=== PATIENT | female | born 1950 | race Caucasian/White ===

== ENCOUNTER 2021-07-16 15:52 | Emergency (ER) | payer MEDICARE, OTHER ==
[~2021-07-16] VITALS: Ht 162.6 cm; Wt 59.0 kg
[~2021-07-16 15:52] MED LIST: AMI2 PO; APIX5TAB PO; DOCU-150 PO; HYDR-4009 PO; LOSA50TA41 PO; METO25TA6 PO; MIRT-90 PO; PROC10TA17 PO; SACU1TAB PO; URSO300C4 PO
[2021-07-16] MEDS ORDERED: SODIUM CHLORIDE 0.9% 1,000 ML IV ONE (18:15)
[2021-07-16 18:36] LABS: BASOPHILS % 0.7 % (0.0-2.0); HEMATOCRIT. 39.9 % (36.0-48.0); HEMOGLOBIN. 13.4 g/dL (12.0-16.0); MEAN CORPUSCULAR HEMOGLOBIN 29.2 pg (28.0-32.0); MEAN CORPUSCULAR VOLUME 87.4 fL (81.0-99.0); MONOCYTES % 7.9 % (2.0-8.0); NEUTROPHILS % 69.4 % (40.0-76.0); PLATELET 173 x1000/uL (130-400); RED BLOOD CELL COUNT 4.57 mill/uL (4.2-5.4); RED CELL DISTRIBUTION WIDTH 14.7 % (11.6-14.6)
[2021-07-16 18:43] LABS: CHLORIDE 106 mEq/L (98-107)
[2021-07-17 00:34] VITALS: BP 101/57
== END 2021-07-17 02:33 | disposition short-term general hospital (02) ==
LOC: ER 15:52 → CANBEDREQ 07-17 01:46 → ER 07-17 02:33
DX: R53.1 Weakness (principal); R62.7 Adult failure to thrive; I48.91 Unspecified atrial fibrillation; R10.9 Unspecified abdominal pain; R63.0 Anorexia; Z68.22 Body mass index [BMI] 22.0-22.9, adult; I51.9 Heart disease, unspecified; K76.9 Liver disease, unspecified; G20 Parkinson's disease; Z95.0 Presence of cardiac pacemaker; Z88.5 Allergy status to narcotic agent; Z88.6 Allergy status to analgesic agent; Z79.899 Other long term (current) drug therapy
CPT/HCPCS: 36415; 71045; 80053; 82962; 84484; 85025; 93005; 99285; J7030

== ENCOUNTER 2022-02-13 09:48 | Inpatient (IN) | payer OTHER, MEDICAID ==
[~2022-02-13] VITALS: Ht 160 cm; Wt 54.9 kg
[~2022-02-13 09:48] MED LIST changes: +PROC-1 PO; -PROC10TA17 PO
[2022-02-13 10:55] LABS: BASOPHILS % 0.5 % (0.0-2.0); EOSINOPHILS % 0.1 % (0.0-5.0); HEMATOCRIT. 45.4 % (36.0-48.0); HEMOGLOBIN. 14.5 g/dL (12.0-16.0); MEAN CORPUSCULAR HEMOGLOBIN 28.9 pg (28.0-32.0); MEAN CORPUSCULAR VOLUME 90.3 fL (81.0-99.0); MEAN PLATELET VOLUME 8.3 fl (7.4-10.4); MONOCYTES % 4.2 % (2.0-8.0); NEUTROPHILS % 84.2 % (40.0-76.0); PLATELET 170 x1000/uL (130-400); RED BLOOD CELL COUNT 5.03 mill/uL (4.2-5.4); RED CELL DISTRIBUTION WIDTH 13.5 % (11.6-14.6)
[2022-02-13] MEDS ORDERED: AZITHROMYCIN 500MG/250ML 250 ML IV ONE (11:00)
[2022-02-13] MEDS ORDERED: CEFTRIAXONE 1 G PREMIX 50 ML IV ONE (11:00)
[2022-02-13 11:05] LABS: CHLORIDE 94 mEq/L (98-107)
[2022-02-13 11:25] LABS: CLARITY URINE CLEAR (CLEAR); COLOR URINE DARK YELLOW (YELLOW); KETONES URINE TRACE (NEGATIVE); LEUKOCYTE ESTERASE URINE NEGATIVE (NEGATIVE); NITRITE URINE NEGATIVE (NEGATIVE); OCCULT BLOOD URINE NEGATIVE (NEGATIVE); PH URINE 5.5 (4.5-8.0); PROTEIN URINE 2+ (NEGATIVE); SPECIFIC GRAVITY URINE 1.041 (1.005-1.030)
[2022-02-13] MEDS ORDERED: GUAIFENESIN 200MG/10ML SUGAR FREE UDC PO PRN (12:15)
[2022-02-13] MEDS ORDERED: ALBUTEROL 6.7GM HFA INHALER ORI PRN (12:15)
[2022-02-13] MEDS ORDERED: LORAZEPAM 2MG/ML CPJ IV PRN (12:15)
[2022-02-13] MEDS ORDERED: DIPHENHYDRAMINE 50MG/ML VIAL IV PRN (12:15)
[2022-02-13] MEDS ORDERED: MAGNESIUM/ALUMINUM HYDROXIDE/SIMETHICONE 30ML UDC PO PRN (12:15)
[2022-02-13] MEDS ORDERED: ONDANSETRON HCL 4MG/2ML INJ IV PRN (12:15)
[2022-02-13] MEDS ORDERED: CLONIDINE 0.1MG TABLET PO PRN (12:15)
[2022-02-13] MEDS ORDERED: MORPHINE SULFATE 2 MG/ML CPJ (NOT FOR IM USE) IV PRN (12:15)
[2022-02-13] MEDS ORDERED: HYDROCODONE/ACETAMINOPHEN 5/325MG TABLET PO PRN (12:15)
[2022-02-13] MEDS: SODIUM CHLORIDE 0.9% INJ 3ML FLUSH IVF SCH ×2 (14:43→22:00)
[2022-02-13] MEDS: ENOXAPARIN 40MG/0.4ML SYR SUBCUT SCH (14:43)
[2022-02-13 15:50] VITALS: BP 117/72
[2022-02-13 20:00] VITALS: BP 94/50
[2022-02-13] MEDS ORDERED: NALOXONE HCL 0.4MG/ML VIAL IV PRN (22:30)
[2022-02-14] VITALS (7 sets, daily range): BP systolic 80–129; BP diastolic 50–62
[2022-02-14] MEDS: SODIUM CHLORIDE 0.9% INJ 3ML FLUSH IVF SCH ×3 (06:00→21:15)
[2022-02-14 07:22] LABS: BASOPHILS % 0.5 % (0.0-2.0); EOSINOPHILS % 0.2 % (0.0-5.0); HEMATOCRIT. 43.6 % (36.0-48.0); LYMPHOCYTES % 10.1 % (20.0-50.0); MEAN CORPUSCULAR HEMOGLOBIN 29.3 pg (28.0-32.0); MEAN PLATELET VOLUME 8.4 fl (7.4-10.4); MONOCYTES % 9.1 % (2.0-8.0); NEUTROPHILS % 80.1 % (40.0-76.0); PLATELET 156 x1000/uL (130-400); RED BLOOD CELL COUNT 4.79 mill/uL (4.2-5.4); RED CELL DISTRIBUTION WIDTH 13.9 % (11.6-14.6)
[2022-02-14 07:48] LABS: CHLORIDE 96 mEq/L (98-107)
[2022-02-14] MEDS ORDERED: CEFTRIAXONE 1 G PREMIX 50 ML IV SCH (09:00)
[2022-02-14] MEDS ORDERED: AZITHROMYCIN 500MG/250ML 250 ML IV SCH (09:00)
[2022-02-14] MEDS ORDERED: SODIUM CHLORIDE 0.9% 1,000 ML IV SCH (09:00)
[2022-02-14] MEDS: CEFTRIAXONE 1,000 MG in DEXTROSE 5% WATER 50 ML IV SCH (10:08)
[2022-02-14] MEDS: AZITHROMYCIN 500 MG in DEXT 5% WATER 250 ML IV SCH (11:10)
[2022-02-14] MEDS ORDERED: IPRATROPIUM/ALBUTEROL 0.5-3(2.5)MG/3ML NEB HHN SCH (12:00)
[2022-02-14] MEDS: ENOXAPARIN 40MG/0.4ML SYR SUBCUT SCH (13:52)
[2022-02-14] MEDS ORDERED: FUROSEMIDE 40MG/4ML VIAL IVP NR (14:30)
[2022-02-14] MEDS: IPRATROPIUM/ALBUTEROL 0.5-3(2.5)MG/3ML NEB HHN PRN (17:43)
[2022-02-14] MEDS: METOPROLOL TARTRATE 25MG TABLET GT SCH (18:17)
[2022-02-14] MEDS: IPRATROPIUM BROMIDE (0.02%) 0.5MG/2.5ML NEB HHN SCH (21:30)
[2022-02-15] VITALS: BP 110/58
[2022-02-15] MEDS: IPRATROPIUM BROMIDE (0.02%) 0.5MG/2.5ML NEB HHN SCH ×4 (01:56→20:43)
[2022-02-15 04:00] VITALS: BP 116/57
[2022-02-15] MEDS: SODIUM CHLORIDE 0.9% INJ 3ML FLUSH IVF SCH ×3 (05:02→20:55)
[2022-02-15] MEDS: METOPROLOL TARTRATE 25MG TABLET GT SCH ×2 (05:02→17:46)
[2022-02-15 08:00] VITALS: BP 126/64
[2022-02-15] MEDS: CEFTRIAXONE 1,000 MG in DEXTROSE 5% WATER 50 ML IV SCH (08:05)
[2022-02-15] MEDS: AZITHROMYCIN 500 MG in DEXT 5% WATER 250 ML IV SCH (09:18)
[2022-02-15 12:00] VITALS: BP 111/54
[2022-02-15] MEDS: ENOXAPARIN 40MG/0.4ML SYR SUBCUT SCH (12:39)
[2022-02-15] MEDS: AMIODARONE HCL 200 MG TABLET PO SCH ×2 (13:53→20:54)
[2022-02-15] MEDS: FUROSEMIDE 40MG/4ML VIAL IVP SCH (13:53)
[2022-02-15 16:00] VITALS: BP 126/62
[2022-02-15] MEDS ORDERED: APIXABAN 5 MG TABLET PO SCH (17:00)
[2022-02-15 20:00] VITALS: BP 101/59
[2022-02-16] VITALS (32 sets, daily range): BP systolic 81–179; BP diastolic 36–135
[2022-02-16] MEDS: IPRATROPIUM BROMIDE (0.02%) 0.5MG/2.5ML NEB HHN SCH ×4 (00:39→20:35)
[2022-02-16] MEDS: METOPROLOL TARTRATE 25MG TABLET GT SCH (06:00)
[2022-02-16] MEDS: SODIUM CHLORIDE 0.9% INJ 3ML FLUSH IVF SCH ×2 (06:32→14:00)
[2022-02-16] MEDS ORDERED: ETOMIDATE 2MG/ML 10ML VIAL IV ONE (08:54)
[2022-02-16] MEDS ORDERED: VECURONIUM BROMIDE 10 MG/VIAL IV ONE (08:54)
[2022-02-16] MEDS: AMIODARONE HCL 200 MG TABLET PO SCH ×2 (09:16→20:50)
[2022-02-16] MEDS: FUROSEMIDE 40MG/4ML VIAL IVP SCH (09:16)
[2022-02-16] MEDS: APIXABAN 5 MG TABLET PO SCH ×2 (09:16→17:00)
[2022-02-16] MEDS: CEFTRIAXONE 1,000 MG in DEXTROSE 5% WATER 50 ML IV SCH (09:17)
[2022-02-16] MEDS: AZITHROMYCIN 500 MG in DEXT 5% WATER 250 ML IV SCH (09:17)
[2022-02-16] MEDS: METOPROLOL TARTRATE 50MG TABLET GT SCH (17:00)
[2022-02-16 17:23] LABS: BG BASE EXCESS 11.8 mmol/L (-2.0-2.0); BG CARBOXYHEMOGLOBIN 0.8 % (0.5-1.5); BG DEOXYHEMOGLOBIN 0.6 % (0.0-5.0); BG FRACTION INSPIRED OXYGEN 33; BG HCO3 ACT 46.9 mmol/L (22.0-26.0); BG METHEMOGLOBIN 0.4 % (0.0-1.5); BG OXYGEN SATURATION 99.4 % (92.0-98.5); BG OXYHEMOGLOBIN 98.2 % (94.0-97.0); BG PCO2 140.9 mmHg (35.0-45.0); BG PO2 222.9 mmHg (75.0-100.0); BG SAMPLE SITE RIGHT BRACHIAL; BG TOTAL HEMOGLOBIN 14.4 g/dL (12.0-18.0); BG VENT MODE NASAL CANNULA
[2022-02-16] MEDS: FENTANYL 2500MCG/250ML PMX 250 ML IV PRN (18:55)
[2022-02-16] MEDS ORDERED: PROPOFOL 10MG/ML 100ML 100 ML IV PRN (19:00)
[2022-02-16 19:50] LABS: BG CARBOXYHEMOGLOBIN 1.1 % (0.5-1.5); BG FRACTION INSPIRED OXYGEN 30; BG HCO3 ACT 34.5 mmol/L (22.0-26.0); BG METHEMOGLOBIN 0.1 % (0.0-1.5); BG OXYGEN SATURATION 93.9 % (92.0-98.5); BG OXYHEMOGLOBIN 92.8 % (94.0-97.0); BG PCO2 29.8 mmHg (35.0-45.0); BG PH 7.681 (7.350-7.450); BG PO2 39.3 mmHg (75.0-100.0); BG TOTAL HEMOGLOBIN 14.1 g/dL (12.0-18.0); BG VENT MODE VENT - AC
[2022-02-16 20:34] LABS: HEMATOCRIT 44.7 % (36.0-48.0); HEMOGLOBIN 14.1 g/dL (12.0-16.0); MEAN CORPUSCULAR HEMOGLOBIN 29.1 pg (28.0-32.0); MEAN CORPUSCULAR VOLUME 92.5 fL (81.0-99.0); PLATELET 148 x1000/uL (130-400); RED BLOOD CELL COUNT 4.84 mill/uL (4.2-5.4); RED CELL DISTRIBUTION WIDTH 14.2 % (11.6-14.6)
[2022-02-16 20:50] LABS: INR 1.1; PROTHROMBIN TIME 11.3 sec (9.6-11.0)
[2022-02-16 21:16] LABS: CHLORIDE 96 mEq/L (98-107)
[2022-02-16] MEDS ORDERED: AMIODARONE HCL 150 MG in DEXT 5% WATER 100 ML IV NR (22:00)
[2022-02-16] MEDS ORDERED: AMIODARONE HCL 900 MG in DEXT 5% WATER 482 ML IV PRN (22:00)
[2022-02-16 22:08] LABS: BG BASE EXCESS 9.2 mmol/L (-2.0-2.0); BG CARBOXYHEMOGLOBIN 0.8 % (0.5-1.5); BG DEOXYHEMOGLOBIN 4.8 % (0.0-5.0); BG FRACTION INSPIRED OXYGEN 60; BG HCO3 ACT 31.2 mmol/L (22.0-26.0); BG METHEMOGLOBIN 0.1 % (0.0-1.5); BG OXYGEN SATURATION 95.2 % (92.0-98.5); BG OXYHEMOGLOBIN 94.3 % (94.0-97.0); BG PCO2 33.8 mmHg (35.0-45.0); BG PH 7.583 (7.350-7.450); BG PO2 54.6 mmHg (75.0-100.0); BG SAMPLE SITE RIGHT RADIAL; BG TOTAL HEMOGLOBIN 13.9 g/dL (12.0-18.0); BG VENT MODE VENT - AC
[2022-02-17] VITALS (75 sets, daily range): BP systolic 62–120; BP diastolic 40–88
[2022-02-17] MEDS: ACETAMINOPHEN 325MG TABLET PO PRN (00:25)
[2022-02-17] MEDS: ACETYLCYSTEINE 100MG/ML 10% VIAL 4ML INH SCH ×3 (01:42→15:38)
[2022-02-17] MEDS: IPRATROPIUM BROMIDE (0.02%) 0.5MG/2.5ML NEB HHN SCH ×4 (01:42→20:01)
[2022-02-17] MEDS: FUROSEMIDE 40MG/4ML VIAL IVP SCH (08:40)
[2022-02-17] MEDS: AMIODARONE HCL 200 MG TABLET PO SCH ×2 (08:40→20:39)
[2022-02-17] MEDS: APIXABAN 5 MG TABLET PO SCH ×2 (08:40→17:13)
[2022-02-17] MEDS: METOPROLOL TARTRATE 50MG TABLET GT SCH ×2 (09:00→17:13)
[2022-02-17 09:05] LABS: BG BASE EXCESS 4.6 mmol/L (-2.0-2.0); BG CARBOXYHEMOGLOBIN 0.8 % (0.5-1.5); BG DEOXYHEMOGLOBIN 4.5 % (0.0-5.0); BG FRACTION INSPIRED OXYGEN 60; BG HCO3 ACT 26.6 mmol/L (22.0-26.0); BG OXYGEN SATURATION 95.5 % (92.0-98.5); BG OXYHEMOGLOBIN 94.7 % (94.0-97.0); BG PCO2 31.8 mmHg (35.0-45.0); BG PH 7.541 (7.350-7.450); BG PO2 64.5 mmHg (75.0-100.0); BG SAMPLE SITE RIGHT RADIAL; BG TOTAL HEMOGLOBIN 13.7 g/dL (12.0-18.0); BG VENT MODE VENT - AC
[2022-02-17] MEDS: CEFTRIAXONE 1,000 MG in DEXTROSE 5% WATER 50 ML IV SCH (10:14)
[2022-02-17] MEDS ORDERED: FUROSEMIDE 20MG/2ML VIAL IVP NR (10:15)
[2022-02-17] MEDS: IPRATROPIUM/ALBUTEROL 0.5-3(2.5)MG/3ML NEB HHN PRN (10:58)
[2022-02-17] MEDS ORDERED: SODIUM CHLORIDE 0.9% 500 ML IV ONE (16:45)
[2022-02-17] MEDS: DOCUSATE SODIUM 100MG CAPSULE PO PRN (20:39)
[2022-02-18] VITALS (96 sets, daily range): BP systolic 39–143; BP diastolic 16–85
[2022-02-18] MEDS: ACETYLCYSTEINE 100MG/ML 10% VIAL 4ML INH SCH ×3 (00:17→14:21)
[2022-02-18] MEDS: IPRATROPIUM BROMIDE (0.02%) 0.5MG/2.5ML NEB HHN SCH ×5 (00:17→20:13)
[2022-02-18 05:43] LABS: HEMATOCRIT. 39.9 % (36.0-48.0); MEAN CORPUSCULAR HEMOGLOBIN 29.3 pg (28.0-32.0); MEAN CORPUSCULAR VOLUME 90.3 fL (81.0-99.0); MEAN PLATELET VOLUME 9.2 fl (7.4-10.4); PLATELET 142 x1000/uL (130-400); RED BLOOD CELL COUNT 4.42 mill/uL (4.2-5.4); RED CELL DISTRIBUTION WIDTH 13.6 % (11.6-14.6)
[2022-02-18 06:01] LABS: CHLORIDE 99 mEq/L (98-107)
[2022-02-18 06:12] LABS: HDL CHOLESTEROL 31 mg/dL (40-59); LDL CHOLESTEROL 27 mg/dL (5-100); PHOSPHORUS 1.9 mg/dL (2.5-4.9)
[2022-02-18 07:45] LABS: BG BASE EXCESS 3.8 mmol/L (-2.0-2.0); BG CARBOXYHEMOGLOBIN 0.5 % (0.5-1.5); BG DEOXYHEMOGLOBIN 6.3 % (0.0-5.0); BG HCO3 ACT 26.7 mmol/L (22.0-26.0); BG METHEMOGLOBIN 0.2 % (0.0-1.5); BG OXYGEN SATURATION 93.7 % (92.0-98.5); BG PCO2 34.9 mmHg (35.0-45.0); BG PH 7.502 (7.350-7.450); BG PO2 59.6 mmHg (75.0-100.0); BG SAMPLE SITE RIGHT RADIAL; BG TOTAL HEMOGLOBIN 13.8 g/dL (12.0-18.0); BG VENT MODE VENT - AC
[2022-02-18] MEDS: METOPROLOL TARTRATE 50MG TABLET GT SCH (08:08)
[2022-02-18] MEDS: APIXABAN 5 MG TABLET PO SCH ×2 (08:08→16:31)
[2022-02-18] MEDS: ACETAMINOPHEN 325MG TABLET PO PRN (08:08)
[2022-02-18] MEDS: AMIODARONE HCL 200 MG TABLET PO SCH (08:08)
[2022-02-18] MEDS: CEFTRIAXONE 1,000 MG in DEXTROSE 5% WATER 50 ML IV SCH (08:08)
[2022-02-18] MEDS: FUROSEMIDE 40MG/4ML VIAL IVP SCH (08:09)
[2022-02-18 08:14] LABS: PLATELET ESTIMATE NORMAL
[2022-02-18] MEDS: IPRATROPIUM/ALBUTEROL 0.5-3(2.5)MG/3ML NEB HHN PRN (08:17)
[2022-02-18] MEDS ORDERED: ALBUMIN HUMAN 25GM/500ML (5%) IV NR (09:00)
[2022-02-18] MEDS ORDERED: SODIUM CHLORIDE 0.9% 1,000 ML IV SCH ×2 (09:00→09:15)
[2022-02-18] MEDS ORDERED: ALBUMIN HUMAN 25GM/500ML (5%) IV PRN (12:45)
[2022-02-18] MEDS: AMIODARONE HCL 200 MG TABLET NG SCH (20:40)
[2022-02-18] MEDS: DOCUSATE SODIUM 100MG CAPSULE PO PRN (20:41)
[2022-02-19] VITALS (72 sets, daily range): BP systolic 75–140; BP diastolic 24–96
[2022-02-19] MEDS: IPRATROPIUM BROMIDE (0.02%) 0.5MG/2.5ML NEB HHN SCH ×4 (00:14→20:23)
[2022-02-19] MEDS: ACETYLCYSTEINE 100MG/ML 10% VIAL 4ML INH SCH ×3 (00:14→14:36)
[2022-02-19] MEDS ORDERED: AMIODARONE HCL 900 MG in DEXT 5% WATER 482 ML IV PRN (04:00)
[2022-02-19] MEDS ORDERED: AMIODARONE HCL 150 MG in DEXT 5% WATER 100 ML IV NR (04:00)
[2022-02-19 06:17] LABS: HDL CHOLESTEROL 13 mg/dL (40-59); LDL CHOLESTEROL 18 mg/dL (5-100)
[2022-02-19 08:45] LABS: BG BASE EXCESS 1.8 mmol/L (-2.0-2.0); BG CARBOXYHEMOGLOBIN 0.5 % (0.5-1.5); BG DEOXYHEMOGLOBIN 4.5 % (0.0-5.0); BG FRACTION INSPIRED OXYGEN 80; BG METHEMOGLOBIN 0.2 % (0.0-1.5); BG OXYGEN SATURATION 95.5 % (92.0-98.5); BG OXYHEMOGLOBIN 94.8 % (94.0-97.0); BG PCO2 39.4 mmHg (35.0-45.0); BG PH 7.438 (7.350-7.450); BG SAMPLE SITE RIGHT RADIAL; BG TOTAL HEMOGLOBIN 11.9 g/dL (12.0-18.0); BG VENT MODE VENT - AC
[2022-02-19] MEDS ORDERED: SODIUM CHLORIDE 0.9% 1,000 ML IV SCH ×2 (09:15→11:00)
[2022-02-19] MEDS: AMIODARONE HCL 200 MG TABLET NG SCH ×2 (10:41→19:54)
[2022-02-19] MEDS: APIXABAN 5 MG TABLET PO SCH ×2 (10:41→17:00)
[2022-02-19] MEDS: MORPHINE SULFATE 2 MG/ML CPJ (NOT FOR IM USE) IV PRN ×2 (10:51→15:38)
[2022-02-19] MEDS ORDERED: SODIUM PHOS,M-BASIC-D-BASIC 20 MM in DEXT 5% WATER 243.3333 ML IV NR (11:00)
[2022-02-19 12:47] LABS: HEMATOCRIT. 34.4 % (36.0-48.0); HEMOGLOBIN. 11.3 g/dL (12.0-16.0); MEAN CORPUSCULAR VOLUME 88.2 fL (81.0-99.0); PLATELET 107 x1000/uL (130-400); RED CELL DISTRIBUTION WIDTH 13.8 % (11.6-14.6)
[2022-02-19 12:57] LABS: CHLORIDE 107 mEq/L (98-107)
[2022-02-19 13:34] LABS: PLATELET ESTIMATE SLIGHTLY DECREASED
[2022-02-19] MEDS: KCL 20MEQ/100ML PREMIX 100 ML IV SCH ×2 (14:15→17:00)
[2022-02-19] MEDS: FENTANYL 2500MCG/250ML PMX 250 ML IV PRN (16:46)
[2022-02-20] VITALS (70 sets, daily range): BP systolic 57–156; BP diastolic 17–111
[2022-02-20] MEDS: ACETYLCYSTEINE 100MG/ML 10% VIAL 4ML INH SCH ×3 (00:23→13:41)
[2022-02-20] MEDS: IPRATROPIUM/ALBUTEROL 0.5-3(2.5)MG/3ML NEB HHN PRN (00:23)
[2022-02-20] MEDS: IPRATROPIUM BROMIDE (0.02%) 0.5MG/2.5ML NEB HHN SCH ×5 (00:24→20:47)
[2022-02-20 05:24] LABS: MEAN CORPUSCULAR HEMOGLOBIN 28.8 pg (28.0-32.0); MEAN CORPUSCULAR VOLUME 89.3 fL (81.0-99.0); MEAN PLATELET VOLUME 9.4 fl (7.4-10.4); PLATELET 108 x1000/uL (130-400); RED CELL DISTRIBUTION WIDTH 13.8 % (11.6-14.6)
[2022-02-20 05:34] LABS: CHLORIDE 113 mEq/L (98-107)
[2022-02-20 05:43] LABS: CREATINE KINASE 79 IU/L (26-192); PHOSPHORUS 2.7 mg/dL (2.5-4.9)
[2022-02-20 08:30] LABS: BG BASE EXCESS 2.9 mmol/L (-2.0-2.0); BG CARBOXYHEMOGLOBIN 0.2 % (0.5-1.5); BG DEOXYHEMOGLOBIN 6.5 % (0.0-5.0); BG FRACTION INSPIRED OXYGEN 80; BG HCO3 ACT 26.5 mmol/L (22.0-26.0); BG METHEMOGLOBIN 0.3 % (0.0-1.5); BG OXYGEN SATURATION 93.5 % (92.0-98.5); BG PCO2 37.1 mmHg (35.0-45.0); BG PH 7.472 (7.350-7.450); BG PO2 62.4 mmHg (75.0-100.0); BG SAMPLE SITE LEFT BRACHIAL; BG TOTAL HEMOGLOBIN 11.5 g/dL (12.0-18.0); BG VENT MODE VENT - AC
[2022-02-20] MEDS: APIXABAN 5 MG TABLET PO SCH ×2 (09:00→17:00)
[2022-02-20] MEDS ORDERED: FENTANYL CITRATE/PF 50MCG/ML 2ML VIAL IV PRN (09:30)
[2022-02-20] MEDS ORDERED: AMIODARONE HCL 900 MG in DEXT 5% WATER 482 ML IV SCH (10:15)
[2022-02-20] MEDS ORDERED: DEXT 5%/0.45% NACL 1000ML 1,000 ML IV SCH (10:45)
[2022-02-20] MEDS ORDERED: PANTOPRAZOLE SODIUM 40 MG/VIAL IV SCH (11:15)
[2022-02-20 12:14] LABS: PLATELET ESTIMATE SLIGHTLY DECREASED
[2022-02-20] MEDS: CEFEPIME 2,000 MG in DEXT 5% WATER 100 ML IV SCH (13:07)
[2022-02-20] MEDS ORDERED: NALOXONE HCL 0.4MG/ML VIAL IV PRN (14:00)
[2022-02-20 16:52] LABS: TOTAL IRON BINDING CAPACITY 364 ug/dL (250-450)
[2022-02-20 22:24] LABS: FOLIC ACID (FOLATE) SERUM 18.8 ng/mL (>5.38)
[2022-02-20] MEDS: PANTOPRAZOLE SODIUM 40 MG/VIAL IV SCH (23:40)
[2022-02-21] VITALS (70 sets, daily range): BP systolic 70–148; BP diastolic 33–110
[2022-02-21] MEDS: ACETYLCYSTEINE 100MG/ML 10% VIAL 4ML INH SCH ×3 (00:42→16:07)
[2022-02-21] MEDS: IPRATROPIUM BROMIDE (0.02%) 0.5MG/2.5ML NEB HHN SCH ×5 (00:42→16:07)
[2022-02-21] MEDS: CEFEPIME 2,000 MG in DEXT 5% WATER 100 ML IV SCH ×2 (01:18→11:53)
[2022-02-21 05:15] LABS: HEMOGLOBIN. 10.9 g/dL (12.0-16.0); MEAN CORPUSCULAR HEMOGLOBIN 28.8 pg (28.0-32.0); MEAN CORPUSCULAR VOLUME 90.1 fL (81.0-99.0); MEAN PLATELET VOLUME 9.2 fl (7.4-10.4); PLATELET 109 x1000/uL (130-400); RED BLOOD CELL COUNT 3.77 mill/uL (4.2-5.4)
[2022-02-21 05:26] LABS: CHLORIDE 116 mEq/L (98-107)
[2022-02-21] MEDS ORDERED: DEXTROSE 5% WATER 1,000 ML IV SCH (07:00)
[2022-02-21 07:53] LABS: PLATELET ESTIMATE DECREASED
[2022-02-21 08:04] LABS: BG BASE EXCESS 1.2 mmol/L (-2.0-2.0); BG CARBOXYHEMOGLOBIN 0.4 % (0.5-1.5); BG DEOXYHEMOGLOBIN 3.1 % (0.0-5.0); BG HCO3 ACT 26.4 mmol/L (22.0-26.0); BG METHEMOGLOBIN 0.3 % (0.0-1.5); BG OXYGEN SATURATION 96.9 % (92.0-98.5); BG OXYHEMOGLOBIN 96.2 % (94.0-97.0); BG PH 7.396 (7.350-7.450); BG PO2 91.7 mmHg (75.0-100.0); BG SAMPLE SITE RIGHT RADIAL; BG TOTAL HEMOGLOBIN 12.7 g/dL (12.0-18.0); BG VENT MODE VENT - AC
[2022-02-21] MEDS ORDERED: KCL 20MEQ/100ML PREMIX 100 ML IV NR (09:00)
[2022-02-21] MEDS: PANTOPRAZOLE SODIUM 40 MG/VIAL IV SCH (09:53)
[2022-02-21] MEDS: APIXABAN 5 MG TABLET PO SCH ×2 (09:54→17:00)
[2022-02-21] MEDS ORDERED: AMIODARONE HCL 200 MG TABLET GT SCH (10:00)
[2022-02-21] MEDS: FENTANYL 2500MCG/250ML PMX 250 ML IV PRN (10:12)
[2022-02-21] MEDS ORDERED: METHYLPREDNISOLONE SOD SUCC 40 MG/ML VIAL IV SCH (12:00)
[2022-02-21] MEDS ORDERED: MORPHINE SULFATE 2 MG/ML CPJ (NOT FOR IM USE) IV PRN ×2 (16:45→18:30)
== END 2022-02-21 18:48 | DRG 870 ==
LOC: ER 09:48 → EDBEDREQ 11:07 → 7WST 11:10 → EDBEDREQ 11:17 → EDBEDREQTM 11:17 → EDBEDREQSVC 11:41 → ENRESERV 12:46 → 5EST 02-16 17:13 → MICUSO 02-16 18:23
PROVIDERS: ADMIT Internal Medicine; ATTEND Internal Medicine
PROC: 5A1955Z Respiratory Ventilation, Greater than 96 Consecutive Hours (ICD-10-PCS; principal; 2022-02-16)
PROC: 0BH17EZ Insertion of Endotracheal Airway into Trachea, Via Natural or Artificial Opening (ICD-10-PCS; 2022-02-16)
DX: A41.9 Sepsis, unspecified organism (principal); J96.01 Acute respiratory failure with hypoxia; J18.9 Pneumonia, unspecified organism; I50.43 Acute on chronic combined systolic (congestive) and diastolic (congestive) heart failure; J96.02 Acute respiratory failure with hypercapnia; I21.4 Non-ST elevation (NSTEMI) myocardial infarction; N17.0 Acute kidney failure with tubular necrosis; E44.1 Mild protein-calorie malnutrition; E87.1 Hypo-osmolality and hyponatremia; G93.40 Encephalopathy, unspecified; I48.92 Unspecified atrial flutter; J44.0 Chronic obstructive pulmonary disease with (acute) lower respiratory infection; R57.9 Shock, unspecified; Z66 Do not resuscitate; M48.00 Spinal stenosis, site unspecified; E78.5 Hyperlipidemia, unspecified; I25.10 Atherosclerotic heart disease of native coronary artery without angina pectoris; R13.10 Dysphagia, unspecified; Z20.822 Contact with and (suspected) exposure to COVID-19; I44.0 Atrioventricular block, first degree; D69.6 Thrombocytopenia, unspecified; E83.39 Other disorders of phosphorus metabolism; E83.41 Hypermagnesemia; G20 Parkinson's disease; D64.9 Anemia, unspecified; I08.1 Rheumatic disorders of both mitral and tricuspid valves; I11.0 Hypertensive heart disease with heart failure; I48.0 Paroxysmal atrial fibrillation; K52.9 Noninfective gastroenteritis and colitis, unspecified; R74.01 Elevation of levels of liver transaminase levels; E80.6 Other disorders of bilirubin metabolism; Z79.01 Long term (current) use of anticoagulants; Z79.899 Other long term (current) drug therapy; Z95.0 Presence of cardiac pacemaker; I69.398 Other sequelae of cerebral infarction; Z93.1 Gastrostomy status; Z90.49 Acquired absence of other specified parts of digestive tract; Z88.6 Allergy status to analgesic agent; Z68.21 Body mass index [BMI] 21.0-21.9, adult; I46.9 Cardiac arrest, cause unspecified
CPT/HCPCS: 31500; 36415; 36600; 71045; 71250; 74018; 74176; 76700; 80048; 80053; 80061; 80076; 81003; 82270; 82375; 82550; 82607; 82728; 82746; 82805; 82962; 83540; 83550; 83605; 83735; 83880; 84100; 84145; 84478; 84484; 85025; 85027; 85044; 85384; 87426; 87804; 93005; 93306; 94002; 94003; 94640; 99285; C1893; C9113; C9803; J0282; J0456; J0692; J0696; J1650; J1940; J2060; J2270; J2920; J3010; J3480; J3490; J7030; J7060; J7070; J7608; P9041; A4315